=== PATIENT | female | born 1945 | race American Indian/Alaskan Native ===

== ENCOUNTER 2016-06-15 10:20 | Day surgery (SDC) | payer MEDICARE ==
[~2016-06-15 10:20] MED LIST: ANCEF/STERILE WATER 2 GM/20 ML 2 GM/20 ML SYRINGE IV NR
--- NOTE | 2016-06-15 11:46 | Anesthesia Consultation ---
Anesthesia Consult and Med Hx - Airway Anesthetic Teeth Evaluation: Good (has implants) ROM Head & Neck: Adequate Mental/Hyoid Distance: Adequate Mallampati Class: Class II Intubation Access Assessment: Probably Good - Pulmonary Exam CTA: Yes - Cardiac Exam Cardiac Exam: RRR (has murmur - did not hear on auscultation) - Pre-Operative Health Status ASA Pre-Surgery Classification: ASA2 Proposed Anesthetic Plan: General - Pulmonary Hx Smoking: No Hx Sleep Apnea: No (EDSON PRE SCREEN LOW RISK) - Cardiovascular System Hx Hypertension: Yes (X 4 YRS; high cholesterol) Hx Heart Murmur: Yes (CAUSES NO PROBLEMS) - Other Systems Hx Cancer: No
--- NOTE | 2016-06-15 11:47 | Anesthesia Day of Surgery ---
Anesthesia Day of Surgery - Day of Surgery Patient Examined: Yes Patient H&P Reviewed: Yes Patient is NPO: Yes
[2016-06-15] MEDS ORDERED: PEPCID IV NR (11:53)
[2016-06-15] MEDS ORDERED: VERSED IV NR (11:53)
[2016-06-15] MEDS ORDERED: LACTATED RINGERS 1,000 ML IV SCH (12:00)
[2016-06-15 12:40] LABS: Basophils % (Auto) 0.7 % (0.0-1.8); Eosinophils % (Auto) 5.3 % (0.0-4.3); Hematocrit 38.9 % (30.3-42.9); Mean Corpuscular HGB Conc 33 % (30-34); Mean Corpuscular Hemoglobin 30 pg (28-32); Mean Corpuscular Volume 89 fl (79-97); Platelet Count 219 K/mm3 (140-440); Red Blood Count 4.36 M/mm3 (3.65-5.03); Red Cell Distribution Width 13.5 % (13.2-15.2); White Blood Count 5.7 K/mm3 (4.5-11.0)
[2016-06-15] MEDS ORDERED: DILAUDID ONE (12:53)
[2016-06-15] MEDS ORDERED: XYLOCAINE MPF 2% ONE (12:53)
[2016-06-15] MEDS ORDERED: ZOFRAN ONE (12:53)
[2016-06-15] MEDS ORDERED: DIPRIVAN 10 MG/ML IV ONE (12:53)
--- NOTE | 2016-06-15 13:54 | Short Stay Summary ---
Short Stay Documentation Date of service: 06/15/16 - History H&P: obtained from office - Allergies and Medications Current Medications: Allergies aspirin Adverse Reaction (Verified 06/04/16 12:39) Nausea ALLERGIC TO UNCOATED ASA- CAN TKE COATED ASA. Home Medications Medication Instructions Recorded Confirmed Last Taken Type Aspirin EC [Aspirin Enteric Coated 81 mg PO QDAY 06/04/16 06/15/16 06/08/16 History TAB] Calcium Carbonate [Calcium] 600 mg PO DAILY 06/04/16 06/15/16 06/14/16 History Calcium Carbonate/Vitamin D3 1 tab PO DAILY 06/04/16 06/15/16 06/14/16 History [Calcium 500 + Vit D3 400 Tab] Meloxicam [Mobic] 7.5 mg PO BID 06/04/16 06/15/16 06/14/16 History Rosuvastatin (Nf) [Crestor] 10 mg PO QHS 06/04/16 06/15/16 06/14/16 History Vitamin E 1,000 unit PO DAILY 06/04/16 06/15/16 06/14/16 History amLODIPine [Norvasc] 10 mg PO DAILY 06/04/16 06/15/16 06/15/16 History Active Medications Famotidine (Pepcid) 20 mg IV PREOP NR Stop: 06/15/16 23:59 Last Admin: 06/15/16 12:38 Dose: 20 mg Cefazolin Sodium (Ancef/Sterile Water 2 Gm/20 Ml) 2 gm in 20 mls @ 80 mls/hr IV PREOP NR PRN Reason: Protocol Stop: 06/15/16 23:59 Lactated Ringer's (Lactated Ringers) 1,000 mls @ 125 mls/hr IV DIRECT CATHY Stop: 06/15/16 23:59 Last Admin: 06/15/16 12:30 Dose: 125 mls/hr Midazolam HCl (Versed) 2 mg IV PREOP NR Stop: 06/15/16 23:59 Last Admin: 06/15/16 12:42 Dose: 2 mg - Brief post op/procedure progress note Date of procedure: 06/15/16 Condition: stable - Disposition Condition at discharge: Stable Disposition: DISCHARGED TO HOME OR SELFCARE Short Stay Discharge Plan Follow up with: SHANELL MONTERO MD [Primary Care Provider] - 7 Days
[2016-06-15] MEDS ORDERED: MARCAINE-EPI 0.25%-1:200,000 INFILTRATI ONE (13:59)
--- NOTE | 2016-06-15 14:39 | Post Anesthesia Evaluation ---
- Post Anesthesia Evaluation Patient Participated: Yes Airway Patent: Yes Stable Respiratory Function: Yes Nausea/Vomiting: No Temp > 96.8F: Yes Pain Manageable: Yes Adequeate Hydration: Yes Anesthesia Complications: No Block Receding Appropriately: Not Applicable Patient on Ventilator: No
[2016-06-15 15:46] VITALS: BP 115/56
[2016-06-15] MEDS ORDERED: PHENERGAN PR PRN ×2 (16:04→16:10)
--- NOTE | 2016-06-16 20:20 | Operative Report ---
PREOPERATIVE DIAGNOSIS: Medial meniscal tear, right knee, medial knee arthritis. POSTOPERATIVE DIAGNOSIS: Medial meniscal tear, right knee, medial knee arthritis. PROCEDURE: Diagnostic arthroscopy, arthroscopic partial medial meniscectomy, arthroscopic chondroplasty, medial knee joint compartment. SURGEON: Isidra Snow MD DISEASE CASE MANAGER: Marcsu Montez RN FINDINGS: The patient was found to have wear of both tibia and femur surface of the medial compartment and a very complex tear of the meniscus, posterior tear of the medial meniscus. Normal ACL, normal lateral compartment of the joint, normal patellofemoral joint. PROCEDURE IN DETAIL: Once the patient was in surgical room, a time-out was carried out to identify the patient and procedure, prepping and draping of the patient done in usual fashion. The procedure was carried out by insertion of the scope in the medial and lateral parapatellar portal sites. Arthroscopy of the knee joint was done without any problems or complications. The diagnostic arthroscopy was done. At this point, using basket forceps and rotator meniscotome, debridement of the meniscus was done to a stable rim and cleaning of the chondral surface of the femur and tibia were done almost to bleeding bone in multiple areas. All the fragments of cartilage were removed. Once this was done, the procedure was terminated. The wound was irrigated. The wound closed with Monocryl suture and compression bandage was applied. JOB# [id number] DENISA/MIGUEL FERGUSON
== END 2016-06-15 16:28 | disposition home or self-care (01) ==
LOC: OR 10:20
DX: S83.231A Complex tear of medial meniscus, current injury, right knee, initial encounter (principal); M17.12 Unilateral primary osteoarthritis, left knee; I10 Essential (primary) hypertension; J45.909 Unspecified asthma, uncomplicated; Z82.3 Family history of stroke; Z90.710 Acquired absence of both cervix and uterus; Z82.49 Family history of ischemic heart disease and other diseases of the circulatory system; X58.XXXA Exposure to other specified factors, initial encounter; Y93.9 Activity, unspecified; Y92.9 Unspecified place or not applicable; Y99.9 Unspecified external cause status
CPT/HCPCS: 29881; 36415; 85025; J0690; J1170; J2250; J2405; J2704; J7120

== ENCOUNTER 2017-05-23 13:54 | Outpatient (CLI) | payer MEDICARE | END 2017-05-23 13:55 | disposition home or self-care (01) | LOC: LABHHL 13:54 | PROVIDERS: ATTEND Internal Medicine | DX: N39.0 Urinary tract infection, site not specified (principal); I10 Essential (primary) hypertension; E78.2 Mixed hyperlipidemia; E55.9 Vitamin D deficiency, unspecified | CPT/HCPCS: 87076; 87086; 87186 ==

== ENCOUNTER 2018-08-25 10:13 | Outpatient (CLI) | payer MEDICARE ==
[2018-08-25 11:26] LABS: Hematocrit 41.6 % (30.3-42.9); Hemoglobin 14.2 gm/dl (10.1-14.3); Mean Corpuscular HGB Conc 34 % (30-34); Mean Corpuscular Volume 90 fl (79-97); Platelet Count 240 K/mm3 (140-440); Red Cell Distribution Width 13.2 % (13.2-15.2)
[2018-08-25 11:39] LABS: Alanine Aminotransferase 13 units/L (7-56); Albumin 4.7 g/dL (3.9-5); BUN/Creatinine Ratio 15; Blood Urea Nitrogen 12 mg/dL (7-17); Calcium 9.9 mg/dL (8.4-10.2); HDL Cholesterol 76 mg/dL (40-59); Hemolysis Index 24; LDL Cholesterol,Direct 114 mg/dL (50-130)
[2018-09-01 11:33] LABS: Vitamin D, 25-OH, D2 SEE SCANNED RESULTS
== END 2018-08-25 10:14 | disposition home or self-care (01) ==
LOC: LAB 10:13
PROVIDERS: ATTEND Internal Medicine
DX: Z00.01 Encounter for general adult medical examination with abnormal findings (principal); I10 Essential (primary) hypertension; E78.2 Mixed hyperlipidemia; M62.830 Muscle spasm of back; E78.00 Pure hypercholesterolemia, unspecified; Z90.710 Acquired absence of both cervix and uterus; R79.89 Other specified abnormal findings of blood chemistry
CPT/HCPCS: 36415; 80053; 80061; 82306; 82607; 83036; 84443; 85027

== ENCOUNTER 2019-06-25 09:47 | Day surgery (SDC) | payer MEDICARE ==
[~2019-06-25 09:47] MED LIST changes: -ANCEF/STERILE WATER 2 GM/20 ML 2 GM/20 ML SYRINGE IV NR; +SODIUM CHLORIDE 0.9% 1000 ML 1,000 ML IV SCH
--- NOTE | 2019-06-25 10:22 | Anesthesia Day of Surgery ---
Anesthesia Day of Surgery - Day of Surgery Patient Examined: Yes Patient H&P Reviewed: Yes Patient is NPO: Yes Beta Blockers: No Cardiac Clearance: No Pulmonary Clearance: No
--- NOTE | 2019-06-25 10:29 | Anesthesia Consultation ---
Anesthesia Consult and Med Hx Date of service: 06/25/19 - Airway Anesthetic Teeth Evaluation: Good ROM Head & Neck: Adequate Mental/Hyoid Distance: Adequate Mallampati Class: Class I Intubation Access Assessment: Good - Pulmonary Exam CTA: Yes - Cardiac Exam Cardiac Exam: RRR - Pre-Operative Health Status ASA Pre-Surgery Classification: ASA2 Proposed Anesthetic Plan: General, MAC - Pulmonary Hx Smoking: No Hx Asthma: Yes Hx Sleep Apnea: No (EDSON PRE SCREEN LOW RISK) - Cardiovascular System Hx Hypertension: Yes Hx Heart Murmur: Yes (CAUSES NO PROBLEMS) - Other Systems Hx Cancer: No
[2019-06-25] MEDS ORDERED: propofoL 200 MG/20 ML VIAL IV ONE ×2 (10:40)
[2019-06-25] MEDS ORDERED: WATER FOR IRRIG STERILE 1,000 ML BOTTLE ONE (13:30)
[2019-06-25] MEDS ORDERED: WATER FOR IRRIG STERILE 250 ML BOTTLE IR ONE (13:30)
[2019-06-25 14:05] VITALS: BP 138/62
--- NOTE | 2019-06-25 16:08 | Operative Report ---
Operative Report Operative Report: Colonoscopy with ablation and hot biopsy polypectomy. DATE: 06/25/2019 ATTENDING PHYSICIAN: Jorden Blackburn M.D. DRAPERY AND UPHOLSTERY ESTIMATOR: Jorden Blackburn M.D. INDICATIONS: Patient is a 74y.o. female who presents for colorectal cancer screening . A colonoscopy is done to evaluate patient so that treatment may be directed based on the findings. CONSENT: Informed consent was obtained after the patient was advised regarding the nature of this procedure, its indications, potential benefits as well as possible complications including but not limited to bleeding, perforation, adverse reaction to medications, infection as well as cardiopulmonary complications. An informed written and verbal consent was then obtained after due opportunity was provided for questions and answers. MONITORING: Patient monitored continuously with pulse oximetry, electrocardiographic recordings as well as automatic blood pressure recordings. Patient remained stable throughout the procedure with no untoward events. PREOPERATIVE ASSESSMENT: Patient was assessed immediately prior to this procedure for capacity to tolerate moderate sedation/monitored anesthesia care. [place] [employer] classification is 2. Mallampati class is 2. Hyomental distance is 3. INSTRUMENT: Olympus video colonoscope [id number]. MEDICATIONS: Propofol given intravenously in divided doses. For details, please refer to anesthesia records. DESCRIPTION OF PROCEDURE: Patient was placed in the left lateral decubitus position, after achieving sedation, a digital rectal examination was performed following which the colonoscope was introduced into the anal verge and advanced under direct visualization to the cecum which was identified by the ileocecal valve, the appendiceal orifice, the cecal strap as well as by direct transillumination in the right lower quadrant. Color texture mucosa and anatomy of the colon were carefully examined with the colonoscope. The colonoscope was then gently withdrawn with careful inspection of all mucosa surfaces. The patient tolerated the procedure well with no complications. After completion of the examination, patient was transferred to the recovery room. The prep written regimen was GoLYTELY and the preparation was fair. The following findings were noted. FINDINGS: The Harvey prep scale score was 6. The study was deemed adequate. The withdrawal time from the cecum was greater than 6 minutes. Patient had a diminutive transverse colon polyp which was removed by hot biopsy polypectomy and retrieved. Patient had another polyp in the transverse colon which was ablated. There were a few scattered diverticula in the sigmoid and descending colon. Patient had diverticulosis involving the sigmoid colon and the descending colon. On the retroflexed view at the anal verge patient had internal hemorrhoids. IMPRESSION: Transverse colon polyp status post hot biopsy polypectomy Transverse colon polyp status post ablation. Colonic diverticulosis. Internal Hemorrhoids . . PLAN: Follow-up pathology report High fiber diet. Repeat colonoscopy in 5 years
--- NOTE | 2019-06-25 16:09 | Discharge Summary ---
Short Stay Discharge Plan Activity: advance as tolerated Weight Bearing Status: Weight Bear as Tolerated Diet: regular Additional Instructions: Post Sedation D/C Instructions When you return home you may resume your regular diet unless otherwise directed. -Go directly home from the hospital and rest quietly. You may resume normal activities tomorrow. -Do NOT drive, return to work, operate any machinery or make any important personal or business decisions today. -Do NOT drink any alcohol or take nerve or sleeping drugs. They add to the effects of the medicine still present in your body. -NO ASPIRIN OR NSAIDS IN THE NEXT 3-4 DAYS -CALL DR. VELASQUEZ'S OFFICE FOR FOLLOW UP APPOINTMENT FOR BIOPSY RESULTS IN 1-2 WEEKS Follow up with: KRISTIE GARDUNO MD [Primary Care Provider] - 7 Days
== END 2019-06-25 09:48 | disposition home or self-care (01) ==
LOC: GIO 09:47
PROVIDERS: ATTEND Internal Medicine Gastroenterology
DX: Z12.11 Encounter for screening for malignant neoplasm of colon (principal); K57.30 Diverticulosis of large intestine without perforation or abscess without bleeding; K63.5 Polyp of colon; K64.8 Other hemorrhoids; J45.909 Unspecified asthma, uncomplicated; I10 Essential (primary) hypertension; E78.00 Pure hypercholesterolemia, unspecified; Z79.82 Long term (current) use of aspirin; Z79.899 Other long term (current) drug therapy; Z88.8 Allergy status to other drugs, medicaments and biological substances; Z90.710 Acquired absence of both cervix and uterus; Z98.890 Other specified postprocedural states
CPT/HCPCS: 45384; 45388; 88305; J2704; J7030

== ENCOUNTER 2020-10-09 12:25 | Outpatient (CLI) | payer MEDICARE ==
--- NOTE | 2020-10-09 14:47 | XRay Report ---
LEFT SHOULDER 3 VIEW(S) INDICATION / CLINICAL INFORMATION: LEFT SHOULDER PAIN COMPARISON: None available. FINDINGS: BONES / JOINT(S): No acute fracture or subluxation. Mild glenohumeral and AC joint arthrosis. SOFT TISSUES: Tiny globular calcific density at the distal insertion of supraspinatus measures 3 mm, consistent with calcific tendinitis. ADDITIONAL FINDINGS: None. Signer Name: Joey Arnold MD Signed: 10/09/2020 2:42 PM Workstation Name: [id number]
== END 2020-10-09 12:26 | disposition home or self-care (01) ==
LOC: XRAY 12:25
PROVIDERS: ATTEND Internal Medicine
DX: M19.012 Primary osteoarthritis, left shoulder (principal)

== ENCOUNTER 2021-08-13 12:58 | Outpatient (CLI) | payer MEDICARE ==
--- NOTE | 2021-08-14 13:51 | Mammography Report ---
DIGITAL SCREENING MAMMOGRAM WITH CAD, 08/13/2021 CLINICAL INFORMATION / INDICATION: Routine screening mammography. Z12.31 TECHNIQUE: Digital bilateral 2D mammography was obtained in the craniocaudal and mediolateral obliqu e projections. This examination was interpreted with the benefit of Computer-Aided Detection analysis . COMPARISON: None currently available. FINDINGS: Breast Density: The breasts are heterogeneously dense, which may obscure small masses. No dominant mass, suspicious calcifications, or architectural distortion in either breast. There are benign appearing calcifications bilaterally. A right biopsy clip is noted. IMPRESSION: No mammographic evidence of malignancy. Follow up recommendation: Routine yearly BI-RADS Category 2: BENIGN. A "normal" or negative report should not discourage follow up or biopsy of a clinically significant f inding. A written summary of these findings will be mailed to the patient. The patient will be entered into a mammography reporting system which will generate a reminder letter for the patient's next appointmen t at the appropriate interval. The [employer] recommends yearly mammograms starting at age 40 and continuing as l twila as a woman is in good health. Breast MRI is recommended for women with an approximate 20-25% or greater lifetime risk of breast cancer, including women with a strong family history of breast or ova reyes cancer or who have been treated for Hodgkin's disease. Signer Name: Jurgen Decker MD Signed: 08/14/2021 1:47 PM Workstation Name: [id number]
== END 2021-08-13 12:59 | disposition home or self-care (01) ==
LOC: MAMMO 12:58
PROVIDERS: ATTEND Internal Medicine
DX: Z12.31 Encounter for screening mammogram for malignant neoplasm of breast (principal)
CPT/HCPCS: 77067